=== PATIENT | female | born 1990 | race Hispanic/Latino ===

== ENCOUNTER 2017-07-19 14:28 | Emergency (ER) | payer OTHER, SELFPAY ==
[2017-07-19] MEDS ORDERED: levETIRAcetam 500 MG TAB PO SCH (15:30)
== END 2017-07-19 16:24 | disposition home or self-care (01) ==
LOC: ERS 14:28
DX: G40.909 Epilepsy, unspecified, not intractable, without status epilepticus (principal); Z79.899 Other long term (current) drug therapy
CPT/HCPCS: 81025; 99284

== ENCOUNTER 2018-09-11 13:41 | Emergency (ER) | payer OTHER, SELFPAY ==
[2018-09-11] MEDS ORDERED: Acetaminophen 325 MG TAB ONE (14:46)
--- NOTE | 2018-09-11 14:50 | RAD ---
LEFT KNEE 4 VIEWS: Date: 09/11/18 HISTORY: Left knee pain. FINDINGS/IMPRESSION: No fracture, dislocation, or bony destruction is seen. No joint effusion is identified. POS: [facility]
--- NOTE | 2018-09-11 15:03 | CT ---
CT CERVICAL SPINE WITH CORONAL AND SAGITTAL REFORMATIONS: Date: 09/11/18 HISTORY: Level II trauma. FINDINGS/IMPRESSION: No fracture or subluxation is seen. No facet malalignment is identified. Findings discussed over the telephone with ER physician, Dr. Albert Sanchez, at 1451 hours. CODE CR. POS: [facility]
--- NOTE | 2018-09-11 16:03 | RAD ---
THORACIC SPINE SERIES THREE VIEWS: 09/11/18 HISTORY: Pain, status post trauma. Vertebral bodies are normal in height. Disc spaces all appear well preserved. There is no signs of an y fracture. Pedicles are intact. IMPRESSION: Unremarkable thoracic spine. POS: [facility]
== END 2018-09-11 17:07 | disposition home or self-care (01) ==
LOC: ERS 13:41
DX: S16.1XXA Strain of muscle, fascia and tendon at neck level, initial encounter (principal); S70.12XA Contusion of left thigh, initial encounter; M54.6 Pain in thoracic spine; V49.9XXA Car occupant (driver) (passenger) injured in unspecified traffic accident, initial encounter
CPT/HCPCS: 72070; 72125